=== PATIENT | male | born 1990 | race Caucasian/White ===

== ENCOUNTER 2023-04-02 09:15 | Emergency (ER) | payer OTHER, SELFPAY ==
[2023-04-02 09:45] VITALS: BP 156/93; PULSE 81; RESP 20; TEMP 37.1; O2SAT 100
--- NOTE | 2023-04-02 10:32 | ED.GENADULT ---
HPI - General Adult General Chief complaint: Urogenital-Male Stated complaint: STD Exposure Source: patient Mode of arrival: ambulatory Limitations: no limitations History of Present Illness HPI narrative: Patient presents for evaluation of urinary symptoms for last 3 days. Initial symptom was dysuria. He then developed urinary frequency and has some white urethral discharge yesterday and the day before. He notes an itching sensation in his urethra. He has experienced some low back pain in the lumbar spinal region, primarily in the midline with radiation about to the left and right side that started about 6 months ago. Symptoms have improved. 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 His pain was primarily when he was inactive. He has also experienced some intermittent left sided testicular discomfort, none at this time. Yesterday he purchased some urine strip tests. He states he wiped some of the urethral discharge on the strip and it was positive for nitrites and leukocytes however when he urinated on the strips, it was negative for leukocytes and nitrites. He is and is only sexually active with his . He does not believe her to be sexually active outside the relationship. She is asymptomatic. He denies any history of STI. He has only had one other sexual partner in his lifetime other than his . He only received oral sex with that partner. Denies any nocturia or decreased force of urinary stream. He has experienced some intermittent dribbling and incomplete emptying. Related Data Home Medications Medication Instructions Recorded Confirmed No Home Medications 04/02/23 04/02/23 Allergies Allergy/AdvReac Type Severity Reaction Status Date / Time No Known Allergies Allergy Verified 04/02/23 09:51 Review of Systems Review of Systems: CONSTITUTIONAL: Denies fever, chills, or sweats. EYES: Denies visual changes, redness, or discharge. ENT: Denies rhinorrhea, congestion, sore throat, or otalgia. CARDIOVASCULAR: Denies chest pain, palpitations, or edema. RESPIRATORY: Denies cough or dyspnea. GASTROINTESTINAL: Denies abdominal pain, nausea, vomiting, or diarrhea. GENITOURINARY: Reports urinary frequency and dysuria. Reports intermittent and decreased force of urinary stream and incomplete emptying. Reports recent white urethral discharge and urethral itching. Denies any nocturia. Reports recent left sided testicular pain, none currently. SKIN: Denies rash or itching. MUSCULOSKELETAL: Reports recent midline low back pain, none currently. joint pain, or myalgia. NEUROLOGIC: Denies headache, numbness, dizziness, or weakness. PSYCHIATRIC: Denies anxiety or depression. PMF Past Medical History Medical History No pertinent past medical history Surgical History Surgical History No pertinent past surgical history Family History Family History Mother Family history non-contributory Social History Social History (Updated 04/02/23 @ 10:39 by LASHANDA Billings, ) Substance use: never Living arrangements: with family Gender identity (if verbalized by the patient): Male Sexual Orientation (if Verbalized by the Patient): Straight or Heterosexual Spiritual care concerns: No Exam Narrative: GENERAL: Well-appearing, well-nourished, and in no acute distress. HEAD: Normocephalic, atraumatic. EYES: PERRLA and EOMI. ENT: Nares clear, no rhinorrhea or epistaxis. Mucous membranes moist. Oropharynx without tonsillar hypertrophy exudate or other lesions. Bilateral TMs pearly little nonbulging NECK: Supple. No adenopathy or masses. No carotid bruits or JVD CHEST: Clear to auscultation. No respiratory distress. No wheezes rales or rhonchi HEART: Regular rate
[2023-04-02 21:27] LABS: Trichomonas Vag PCR NOT DETECTED (NOT DETECTE)
[2023-04-02 21:50] LABS: Chlamydia trachomatis NOT DETECTED (NOT DETECTE); Neisseria gonorrhoeae PCR NOT DETECTED (NOT DETECTE)
== END 2023-04-02 10:32 | disposition home or self-care (01) ==
PROVIDERS: Emergency Provider Nurse Practitioner
DX: R30.0 Dysuria (principal); R35.0 Frequency of micturition; R36.9 Urethral discharge, unspecified; M54.50 Low back pain, unspecified
CPT/HCPCS: 81003; 87491; 87591; 87661; 99213; G0463

== ENCOUNTER 2024-04-21 09:56 | Outpatient (CLI) | payer OTHER, SELFPAY ==
--- OUTSIDE RECORDS SUMMARY | 2024-04-21 11:13 | XMS_ITS | Clinical Summary ---
Author Organization [facility] [address] [place] [id number] Care Team Providers Care Automotive Technology Instructor Name Role Phone Lizbet Gauthier NP Primary Care Provider [phone] Allergies No known active allergies Medications azelastine (ASTELIN) 137 mcg (0.1 %) nasal sprayIndication s:Seasonal Allergic Rhinitis Administer 1 spray into each nostril 2 (two) times a day Use in each nostril as directed 30 mL 2 4 Active losartan-hydroC HLOROthiazide (HYZAAR) 100-12.5 mg per tabletIndicatio ns:Hypertension , essential Take 1 tablet by mouth daily 30 tablet 2 4 Active Active Problems Problem Noted Date Diagnosed Date Hypertension, essential 06/16/2023 Assessment & Plan (06/16/2023 10:26 AM CDT): - Start losartan 50 mg daily - continue to check BP b.I.d., wait to check until at least 2 hours after taking antihypertensive and has been sitting for at least 5-10 minutes - follow-up in 4 weeks Rhinosinusitis 06/16/2023 Assessment & Plan (06/16/2023 10:29 AM CDT): - take OTC antihistamine such as cetirizine, Kathi, loratadine, etc. - Azelastine + flonase- 1 spray her nostril BID, continue until end of allergy season - Call for worsening symptoms, fevers, maxillary discomfort, etc. Class 3 severe obesity due t o excess calories without serious comorbidity with body mass index (BMI) of 40.0 to 44.9 in adult 04/13/2023 Chronic midline low back pain without sciatica 0 04/13/2023 Resolved Problems Problem Noted Date Diagnosed Date Resolved Date Non-seasonal allergic rhinitis 06/16/2023 06/16/2023 Prostatitis, acute 04/13/2023 Assessment & Plan (04/13/2023 8:23 PM MOLD DUMPER): - Suspect acute bacterial prostatis - Check PSA - Recent STI screen neg, negative risk factors- suspect E coli - Start 14-day course of Bactrim - Call if worsening or partial relief of symptoms Elevated blood pressure read ing with diagnosis of hypertension 04/13/2023 06/16/2023 Assessment & Plan (04/13/2023 8:27 PM MOLD DUMPER): - Encouraged to check BP twice daily for the next 1-2 weeks and report readings persistently > 130/90, may need to resume antihypertensive medication - Discussed complications of prolonged uncontrolled hypertension on body organ systems - CBC, CMP, lipid panel, HgA1c - Consider low-sodium/DASH diet - Continue weight loss efforts, aim for at least 30 min of moderate aerobic activity most days of the week and strength training 2-3x weekly Anal pain 02/24/2018 06/16/2023 Dysuria 02/24/2018 06/16/2023 Immunizations Immunization Administration Dates Next Due DTaP 02/16/1992,,1990,07/16 Hib (PRP-T) 10/06/1991, 1,1990,07/16 Influenza LAIV (Nasal) 01/09/2003 Influenza, Quadrivalent, Spl it, Intramuscular 12/02/2017 Influenza, Unspecified 04/12/2023(Deferr ed: Patient Refused),01/28/2023(Deferred: Patient Refused) MMR 10/06/1991 OPV 02/16/1992, 1,1990,07/16 PPD TEST 02/16/1992,02/17/1991 Td, adsorbed 08/09/2011 Medical History Medical History Date Comments Prostatitis, acute 04/13/2023 Social History Tobacco Use Types Packs/Day Years Used Date Smoking Tobacco: Never Smokeless Tobacco: Never AUDIT-C Answer Date Recorded Q1: How often do you have a drink containing alc ohol? 2-4 times a month 04/12/2023 Q2: How many drinks containi ng alcohol do you have on a typical day when you are drinking? 1 or 2 04/12/2023 Q3: How often do you have si x or more drinks on one occasion? Never 04/12/2023 PHQ-2 Answer Date Recorded PHQ-2 Total Score (If total score is 3 or more points, staff should administer the PHQ-9) 0 04/12/2023 Personal Safety Answer Date Recorded Getting School Help Needed Not on file 04/04 Sex and Gender Information Value Date Recorded Sex Assigned at Not on file Legal Sex Male 9:25 AM MOLD DUMPER Gender Identity Not on file Sexual Orientation Not on file Obstetrics History Last Filed Vital Signs Vital Sign Reading Time Taken Comments Blood Pressure 146/100 06/06/2023 3:34 PM CDT Pulse 88 06/06/2023 3:04 PM CDT Temperature 36.2 C (97.2 F) 06/06/2023 3:04 PM CDT Respiratory Rate - - Oxygen Saturation 97% 06/06/2023 3:04 PM CDT Inhaled Oxygen Concentration - - Weight 152 kg (335 lb 1.6 oz) 06/06/2023 3:04 PM CDT Height 190.5 cm (6' 3 ) 06/06/2023 3:04 PM CDT Body Mass Index 41.88 06/06/2023 3:04 PM CDT Plan of Treatment Health Maintenance Due Date Last Done Comments Hepatitis C Screening 1990 Varicella Vaccines (1 of 2 - 13+ 2-dose series) 05/28/2003 Hepatitis B Screening 2008 Regular Well Visit/Exam 18-64 2008 DTaP/Tdap/Td Vaccine (5 - Tdap) 08/10/2011 08/09/2011, 02/16/1992, 1990, Additional history exists Influenza Vaccine (#1) 2023 12/02/2017, 2002 Depression Screening 04/12/2024 04/12/2023 HPV Vaccines Aged Out No longer eligi ble based on patient's age to complete this topic Pneumococcal vaccine <65 Aged Out No longer eligible based on patient's age to complete this topic Insurance [facility] HMO Care Teams Automotive Technology Instructor Relationship Specialty Start Date End Date Lizbet Gauthier NP [address] [facility] [address] [place] [address] PCP - General Infectious Diseases 04/12/23
--- OUTSIDE RECORDS SUMMARY | 2024-04-21 11:13 | XMS_ITS | Referral Summary ---
Author Organization [facility] [address] Address [address] [place] [id number] Care Team Providers Care Construction Administrative Assistant Name Role Phone Lizbet Gauthier NP Primary Care Provider [phone] Allergies No known active allergies Medications azelastine [...] 04/13/2023 Assessment & Plan (04/13/2023 8:23 PM RECORD KEEPER): - Suspect acute bacterial prostatis - Check PSA - Recent STI screen neg, negative risk factors- suspect E coli - Start 14-day course of Bactrim - Call if worsening or partial relief of symptoms Elevated blood pressure read ing with diagnosis of hypertension 04/13/2023 06/16/2023 Assessment & Plan (04/13/2023 8:27 PM RECORD KEEPER): - Encouraged to check BP twice daily [...] 1,1990,07/16 PPD TEST 02/16/1992,02/17/1991 Td, adsorbed 08/09/2011 Social History Tobacco Use Types Packs/Day Years [...] on file Legal Sex Male 9:25 AM RECORD KEEPER Gender Identity Not on file Sexual Orientation Not on file Last Filed Vital Signs Vital Sign Reading [...] 06/06/2023 3:04 PM CDT Plan of Treatment Not on file Insurance [facility] [place] [id number] Care Teams Construction Administrative Assistant Relationship Specialty Start Date End Date Lizbet Gauthier NP [address] [facility] [address] [place] [address] PCP - General Infectious Diseases 04/12/23
[2024-04-22 11:32] LABS: Volume Semen 4 mL (1.5-5.0)
[2024-04-22 11:33] LABS: Liquefaction Semen Complete in 30 min. (<30 minutes); Semen Color Opaque (Grey-opaque); Semen Immotility 40 %; Semen Non-Progressive Motility 10 %; Semen Progressive Motility 50 % (>32); Semen Total Motility 60 (>40% (PM+NP)); Semen Viscosity Increased (Not Increa.); Sperm Count 35.2 Mil/mL (60-150 million/mL)
[2024-04-22 11:34] LABS: Semen Morphology Result to Follow
== END 2024-04-21 09:57 | disposition home or self-care (01) ==
DX: Z31.41 Encounter for fertility testing (principal)
CPT/HCPCS: 82757; 88160; 89320